=== PATIENT | male | born 1980 | race Caucasian/White ===

== ENCOUNTER 2025-02-09 08:26 | Emergency (ER) | payer OTHER, SELFPAY ==
[2025-02-09 08:27] VITALS: BP 148/99; PULSE 61; RESP 17; TEMP 36.1; O2SAT 98; BMI 25.8
--- NOTE | 2025-02-09 08:47 | ED.VIS.BACK ---
HPI History of Present Illness Chief Complaint: Back Detail of Chief Complaint: Left leg pain Informant: patient Narrative Narrative: Patient presents with left leg pain that started about 5 days ago after seeing a massage therapist. 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 He does not recall injuring his back at that time and had no back pain initially. Subsequently developed a slowly over time some discomfort into the left hip and buttock region that now radiates to about the knee and at times feels some discomfort into his foot. Patient states that he has been to a chiropractor and then went to the massage therapist and after going to the massage therapist is when the pain really began to become more severe. Patient also went to urgent care yesterday and was referred to [facility] whom he has an appointment with in 5 days. He was ordered a muscle relaxer. Patient just having a lot of pain. He denies weakness to the extremity. He denies any change in bowel or bladder function. PFSH PFS Medical History no medical history Home Medications Medication Instructions Recorded Last Taken Type hydrocodone-acetaminophen 5-325mg 1 tab PO Q4H PRN PRN Pain 2 days 02/09/25 Unknown Rx 5mg-325mg #15 TABLETS methylprednisolone 4 mg tablets in See Rx Instructions PO .COMPLEX 02/09/25 Unknown Rx a dose pack (Medrol (Song)) #21 tabs Allergy/AdvReac Type Severity Reaction Status Date / Time No Known Allergies Allergy Verified 02/09/25 08:28 Family History no significant family his Surgical History no surgical history Social History Smoking Status: Never smoker ROS ROS ED Review of Systems ROS Unobtainable: other Constitutional Constitutional ED: Reports lethargy; Denies chills, fever(s), sweats or weight loss Eyes Eyes: Denies blurry vision, change in vision or diplopia ENT ENT ED: Denies rhinorrhea or sore throat Cardiovascular Cardiovascular: Denies orthopnea or racing heartbeat Respiratory/Chest Respiratory/Chest: Denies dyspnea on exertion, orthopnea or sputum Gastrointestinal Gastrointestinal: Denies abdominal pain, diarrhea, nausea or vomiting Genitourinary Genitourinary ED: Denies dysuria, hematuria or urinary frequency Musculoskeletal Musculoskeletal: Reports other Details: Right leg pain ; Denies arthralgias, back pain, myalgias or neck pain Integumentary Denies abscess, Abrasions or rash Neurologic Neurologic: Denies headache(s) or weakness Psychiatric Psychiatric: Denies anxiety, depression or suicidal thoughts Endocrine Endocrinology: Denies polydipsia, polyphagia or polyuria Hematologic/Lymphatic Hematologic/Lymphatic: Denies easy bleeding, easy bruising or lymphadenopathy Allergic/Immunologic Allergic/Immunologic ED: Denies mouth swelling, tongue swelling or urticaria EXAM Physical Exam Const Vital Signs: 02/09/25 08:27 Temperature 96.9 F L Temperature Source Temporal Pulse Rate 61 Respiratory Rate 17 Blood Pressure 148/99 H Blood Pressure Mean 115 Pulse Ox 98 Oxygen Delivery Method Room Air Positive well nourished and well developed General Appearance ED: well developed and NAD HEENT Reports TM's clear and moist mucous membranes normocephalic and atraumatic; Negative for trauma or tenderness Tympanic Membrane ED: Yes TM's clear Eyes PERRL and EOMs intact bilaterally General Eye ED: Negative for pale conjunctiva or scleral icterus Neck no lymphadenopathy, supple and no JVD General: Negative for tenderness Chest Wall inspection of chest normal and palpation of chest normal Chest: Negative for tenderness Resp normal respiratory effort and clear to auscultation bilaterally Effort and Inspection: Negative for respiratory distress or pain with movement Auscultation: Negative for rhonchi, wheezes or diminished lung sounds Cardio regular rate, regular rhythm, S1 normal heart sound, S2 normal heart sound and no murmurs Peripheral Pulses: pulses 2+ throughout GI normal to inspection, nondistended, normoactive bowel sounds, soft to palpation, non-tender, non-distended and no masses Back/Spine no CVA tenderness and no thoracic nor lumbar tenderness Back/Spine Narrative: Patient has no tenderness on exam of his lumbar spine or lumbar paraspinal musculature. There is no erythema or warmth. He does have a positive straight leg raise while seated about 45 degrees on the left. Deep tendon reflexes are plus 1 out of 4 bilaterally at the patella and Achilles. He has normal L5 extension bilaterally. Patient has normal sensation to light touch. Extremity normal to inspection General Extremety ED: Negative for edema General Extremity: Negative for edema Neuro oriented x3, CN's II-XII intact bilaterally, no sensory deficits noted and gait normal Sensorium / Orientation: awake, alert, oriented to person, oriented to place and oriented to time Motor Exam: strength 5/5 throughout and strength abnormal Psych mental status grossly normal Skin no rashes or lesions noted and no wounds MDM MDM MDM Narrative Medical decision making narrative: Patient presents with discomfort that starts in his left buttock and kind and radiates to the left knee. Discomfort has been progressive. He has no bony tenderness on exam and I do not feel any imaging is indicated in the emergency department. I suspect likely sciatica or piriformis type syndrome. Will medicate him with Dilaudid in the emergency department to help manage his pain. Will write him a prescription for Medrol Dosepak as well as hydrocodone for pain. He is to continue with the muscle relaxer he was prescribed the other day. He is to keep his appointment with [facility]. He is advised to return if weakness in the extremity, change in bowel or bladder function, or condition worsening way. There are no red flag signs or symptoms of cauda equina. Discharge Plan Triage Chief Complaint: Back ED Provider: Robert Wang Dx/Rx/DC Orders Clinical Impression: Sciatica Instructions: ED Sciatica Prescriptions: New methylprednisolone [Medrol (Song)] 4 mg tablets,dose pack See Rx Instructions .ROUTE .COMPLEX Qty: 21 0RF Rx Instructions: orally per package directions hydrocodone-acetaminophen 5-325 mg tablet 1 tab PO Q4H PRN PRN (Reason: Pain) 2 Days Qty: 15 0RF Primary Care Provider: Eliz Sol NP Activity Restrictions/Additional Instructions: Keep your appointment with [facility] next week. Print Language: American Disposition Disposition: Home, Self Care
[2025-02-09 10:13] VITALS: BP 130/81; PULSE 65; RESP 16; TEMP 36.6; O2SAT 100
== END 2025-02-09 10:14 | disposition home or self-care (01) ==
LOC: ED 08:59
PROVIDERS: Emergency Provider Emergency Medicine; PCP Nurse Practitioner Family; Visit Provider Emergency Medicine
DX: M54.30 Sciatica, unspecified side (principal)
CPT/HCPCS: 96372; 99283